=== PATIENT | female | born 1940 | race Caucasian/White ===

== ENCOUNTER 2018-12-30 10:20 | Emergency (ER) | payer OTHER, MEDICARE ==
--- NOTE | 2018-12-30 10:27 | PDOC ---
History of Present Illness - General Chief Complaint: CVA/TIA Stated Complaint: HAD RT EYE VISION PROBLEM, MEMORY PROBLEM Time Seen by Provider: 12/30/18 10:26 - History of Present Illness Initial Comments: 12/30/18 11:16 78 year old with a history of HLD who presents with acute 10-15min episode of R sided vision loss and confusion that occurred 5 days ago. The patient was in [place] when she noticed that she had loss of vision for 1-2min subsequently the patient got a phone call from a friend during which she could not recall any of the names of the people she had dinner with the night before. The patient has not had prior episodes of these symptoms and has not had similar symptoms after these symptoms. She admits to some 1/10 frontal headache that has been ongoing since onset. She denies any nausea, vomiting, ringing in the ears, neck pain, fevers, chest pain, shortness of breath, or recent illness. She denies any facial droop, numbness, tingling or slurring of the speech. Past History - Past Medical History Allergies/Adverse Reactions: Allergies Allergy/AdvReac Type Severity Reaction Status Date / Time Penicillins Allergy Rash Verified 12/30/18 10:22 Home Medications: Ambulatory Orders Aspirin [ASA -] 81 mg PO DAILY #30 tab.chew 12/30/18 Multivitamin [Multiple Vitamins] 1 each PO DAILY 12/30/18 RX: Pravastatin Sodium 20 mg PO DAILY 12/30/18 COPD: No Hypercholesterolemia: Yes - Surgical History Appendectomy: Yes - Suicide/Smoking/Psychosocial Hx Smoking History: Former smoker Have you smoked in the past 12 months: No If you are a former smoker, when did you quit?: 1981 Information on smoking cessation initiated: Yes Hx Alcohol Use: (weekends) Review of Systems - Review of Systems Able to Perform ROS?: Yes Comments:: 12/30/18 11:26 GENERAL/CONSTITUTIONAL: No fever or chills. No weakness. HEAD, EYES, EARS, NOSE AND THROAT: No change in vision. No ear pain or discharge. No sore throat. CARDIOVASCULAR: No chest pain or shortness of breath RESPIRATORY: No cough, wheezing, or hemoptysis. GASTROINTESTINAL: No nausea, vomiting, diarrhea or constipation. GENITOURINARY: No dysuria, frequency, or change in urination. MUSCULOSKELETAL: No joint or muscle swelling or pain. No neck or back pain. SKIN: No rash NEUROLOGIC: No headache, vertigo, loss of consciousness, or change in strength/ sensation. ENDOCRINE: No increased thirst. No abnormal weight change HEMATOLOGIC/LYMPHATIC: No anemia, easy bleeding, or history of blood clots. ALLERGIC/IMMUNOLOGIC: No hives or skin allergy. Is the patient limited [place]ian proficient: No *Physical Exam - Vital Signs Last Vital Signs Temp Pulse Resp BP Pulse Ox 97.4 F L 94 H 18 151/76 99 12/30/18 10:20 12/30/18 10:20 12/30/18 10:20 12/30/18 10:20 12/30/18 10:20 - Physical Exam Comments: 12/30/18 11:26 GENERAL: Awake, alert, and fully oriented, in no acute distress HEAD: No signs of trauma, normocephalic, atraumatic EYES: PERRLA, EOMI, sclera anicteric, conjunctiva clear ENT: oropharynx clear without exudates. Moist mucosa NECK: Normal ROM, supple LUNGS: No distress, speaks full sentences, clear to auscultation bilaterally HEART: Regular rate and rhythm, normal S1 and S2, no murmurs, rubs or gallops, peripheral pulses normal and equal bilaterally. ABDOMEN: Soft, nontender, normoactive bowel sounds. No guarding, no rebound. No masses EXTREMITIES : Normal inspection, Normal range of motion, no edema. No clubbing or cyanosis. NEUROLOGICAL: Cranial nerves II through XII grossly intact. Normal speech, normal gait, no focal sensorimotor deficits SKIN: Warm, Dry, normal turgor, no rashes or lesions noted ED Treatment Course - LABORATORY CBC & Chemistry Diagram: 12/30/18 10:38 12/30/18 10:38 Medical Decision Making - Medical Decision Making 12/30/18 11:24 78 year old with a history of HLD who presents with acute 10-15min episode of R sided vision loss and confusion that occurred 5 days ago. The patient was in [place] when she noticed that she had loss of vision for 1-2min subsequently the patient got a phone call from a friend during which she could not recall any of the names of the people she had dinner with the night before. ED Course: consider ddx ibnlt: cva vs tia vs hypoglycemia vs retinal veion occlusion 12/30/18 11:25 ABCD2 score 2 12/30/18 11:28 labs within normal limits head CT: unremarkable for acute bleed. Case discussed by attending Dr. Ni and Neurologist Dr. Gauthier Will follow patient outpatient pt to start ASA 81 Patient stable for discharge with follow up strict return precautions *DC/Admit/Observation/Transfer Diagnosis at time of Disposition: Transient vision disturbance of right eye - Discharge Dispostion Disposition: HOME Condition at time of disposition: Stable - Prescriptions Prescriptions: Aspirin [ASA -] 81 mg PO DAILY #30 tab.chew - Referrals Referrals: Marlen Gongora [Primary Care Provider] - Brayan Gauthier MD [Staff Physician] - Librado Guadarrama MD [Staff Physician] - - Patient Instructions Printed Discharge Instructions: DI for Visual Field Disturbances Additional Instructions: You were seen in the ED for complaints of episodic vision loss. In the ED you were evaluated with labwork and imaging. Your results were unremarkable. There does not appear to be an acute need for immediate hospitalization. You are advised to follow up with your Primary Care Physician within 1 week. You were given a referral to [facility] and Neurologist and are advised to follow up within 1 week. You were given a prescription for Aspirin 81mg and are advised to take the medication as needed. Return to the ED immediately if you experience worsening vision loss, nausea, vomiting, neck pain or stiffness, facial numbness, tingling, slurring of speech or loss of consciousness. - Post Discharge Activity
[2018-12-30 10:48] LABS: BASO % 1.1 % (0-2.0); EOS % 3.3 % (0-4.5); HEMATOCRIT 43.7 % (32.4-45.2); HEMOGLOBIN 14.5 GM/dl (10.7-15.3); LYMPH % 21.9 % (8-40); MCH 32.3 pg (25.7-33.7); MCHC 33.1 g/dl (32.0-36.0); MEAN CELL VOLUME 97.7 fl (80-96); MEAN PLT VOLUME 7.9 fl (7.5-11.1); MONO % 8.2 % (3.8-10.2); NEUT % 65.5 % (42.8-82.8); PLATELET COUNT 259 K/MM3 (134-434); RBC 4.48 M/mm3 (3.60-5.2); RDW 12.1 % (11.6-15.6); WHITE BLOOD COUNT 6.6 K/mm3 (4.0-10.8)
[2018-12-30 10:51] VITALS: TEMP 97.4; BMI 22.2
[2018-12-30 11:09] LABS: ACTIVATED PTT 25.7 SECONDS (25.2-36.5); ALBUMIN 3.9 g/dl (3.4-5.0); ALK PHOS 69 U/L (45-117); ANION GAP 10 MMOL/L (8-16); BILIRUBIN,TOTAL 0.7 mg/dl (0.2-1); BLOOD UREA NITROGEN 20 mg/dl (7-18); CALCIUM 9.5 mg/dl (8.5-10); CHLORIDE 101 mmol/L (98-107); CO2 25 mmol/L (21-32); CREATININE 0.9 mg/dl (0.55-1.3); GLUCOSE,RANDOM 106 mg/dl (74-106); POTASSIUM 4.7 mmol/L (3.5-5.1); SGOT/AST 22 U/L (15-37); SGPT/ALT 15 U/L (13-61); SODIUM 136 mmol/L (136-145); TOT PROT 6.4 g/dl (6.4-8.2)
[2018-12-30 11:13] LABS: INR 1.02 (0.82-1.09); PROTHROMBIN TIME (PATIENT) 11.4 SEC (10.2-13.0)
[2018-12-30] MEDS ORDERED: ASPIRIN 81 MG CHEWABLE TABLETS PO ONE (12:10)
[2018-12-30 12:19] VITALS: BP 145/77; PULSE 79
[2018-12-30] MEDS ORDERED: ASPIRIN 81 MG CHEWABLE TABLETS ONE (12:21)
--- NOTE | 2018-12-30 13:05 | PDOC ---
Attending Attestation - Resident Resident Name: Arabella Canales - ED Attending Attestation I have performed the following: I have examined & evaluated the patient, The case was reviewed & discussed with the resident, I agree w/resident's findings & plan, Exceptions are as noted - HPI HPI: 12/30/18 15:18 Reviewed Residents HPI - Physicial Exam PE: 12/30/18 15:18 Reviewed Residents PE - Medical Decision Making 12/30/18 15:17 78 years old past medical history significant for hyperlipidemia presents to the ED with episode minutes of right-sided vision loss and confusion difficulty recalling names of friends from dinner the night before episodes last approximately 10 to minute 15 minutes and this happened last Sunday 5 days ago She has been asymptomatic since but was convinced to come to the emergency department today She has a nonfocal physical exam her NIHSS score in the emergency Department is [address] is unremarkable her labs are unremarkable her EKG demonstrates normal sinus rhythm Patient low risk for TIA and subsequent stroke based on ABCD 2 score Case was discussed with Dr. Gauthier neurology we'll start patient on baby aspirin, he will see patient this for further management Findings, the need for follow-up and strict return instructions discussed with patient.
--- NOTE | 2018-12-31 10:57 | EKG ---
Test Reason : Blood Pressure : / mmHG Vent. Rate : 078 BPM Atrial Rate : 078 BPM P-R Int : 182 ms QRS Dur : 082 ms QT Int : 386 ms P-R-T Axes : 064 012 040 degrees QTc Int : 440 ms NORMAL SINUS RHYTHM NORMAL ECG NO PREVIOUS ECGS AVAILABLE Confirmed by MD Yvette, Ricardo ([id number]) on 12/31/2018 10:57:19 AM Referred By: NICOLE HILLMAN Confirmed By:Ricardo Crawford MD
== END 2018-12-30 12:35 | disposition home or self-care (01) ==
LOC: FER 10:20
DX: H53.8 Other visual disturbances (principal); E78.5 Hyperlipidemia, unspecified; Z87.891 Personal history of nicotine dependence
CPT/HCPCS: 36415; 70450-TC; 80053; 85025; 85610; 85730; 93005; 99285-25